=== PATIENT | female | born 1970 ===

== ENCOUNTER 2020-01-17 23:20 | Observation (INO) | payer SELFPAY ==
--- NOTE | 2020-01-17 23:24 | ED_ITS ---
Entered by Sonal Duenas, acting as scribe for Radha Scott HPI - General Adult General: Chief complaint: Allergic Reaction Stated complaint: throat swelling/possible alergic reaction Time Seen by Provider: 01/17/20 23:23 Source: patient and family Mode of arrival: ambulatory History of Present Illness: HPI narrative: 50 y/o female presents to the ED with possible allergic reaction. Pt states she has some throat swelling and tightness. She denies any previous episodes like this. Pt states she was recently started on Bactrim for sinus and ear infections. MD complaint: Allergic Reaction Onset (ago): hour(s) Location: mouth Severity: mild Pain Consistency: constant Relieving factors: none Exacerbating factors: medication Associated symptoms: Deny chest pain, confusion, diaphoresis, dyspnea, headache(s), malaise, nausea, rash, palpitations, syncope or vomiting Review of Systems General: Reports: other (negative unless marked) Const: Denies: fever, chills, body aches, fatigue, malaise or diaphoresis Eyes: Denies: change in vision or blurry vision Card: Denies: chest pain, palpitations, irregular heart rhythm, syncope, pre- syncope, shortness of breath on exertion or shortness of breath when lying down Resp: Denies: shortness of breath, productive cough, non-productive cough, wheezing, coughing up blood or chest congestion GI: Denies: abdominal pain, nausea, vomiting, vomiting blood, coffee grounds in vomit, diarrhea, constipation, cramping, blood in stool or black tarry stool : Denies: flank pain, painful urination, urinary frequency, urinary urgency, decreased urine ouput, urinary incontinence or blood in urine Musc: Denies: neck pain, back pain, extremity pain, extremity swelling, joint pain, joint swelling, joint warmth or joint stiffness Skin/Breast: Denies: rash, skin tenderness or yellow skin Neuro: Denies: headache, numbness in extremities, weakness in extremities, changes in sensation, lack of coordination, difficulty walking, dizziness, vertigo or confusion Endo: Denies: excessive thirst, tired all the time, cold intolerance, excessive sweating, flushing or hot flashes [place]/Lymph: Denies: easy bruising, easy bleeding, petechiae or enlarged lymph nodes All/Imm: Denies: hives, throat swelling, tongue swelling, facial swelling or acute wheezing PFSH ED PFSH: Social History Smoking and tobacco status: never smoked Physical Exam Const: COMMON NORMALS: no apparent distress, oriented x3, no limitations, healthy appearing and well nourished EXAM LIMITATIONS: no altered mental status GENERAL APPEARANCE: cooperative, well kempt and well developed ORIENTATION/CONSCIOUSNESS: Yes awake HENMT: COMMON NORMALS: normocephalic, head/scalp atraumatic, hearing grossly normal bilaterally, external ears normal, EAC's normal, external nose normal and moist oral mucous membranes HEAD & SCALP: normal to inspection, normocephalic and atraumatic FACE & SINUS: normal facial exam and face symmetric NOSE: external nose normal and nares normal EXTERNAL EAR: Yes external ears normal EXTERNAL AUDITORY CANAL: EAC's normal Eye: COMMON NORMALS: PERRL, EOMs intact bilaterally, conjunctivae normal and no scleral icterus GENERAL EYE: normal appearance of both eyes and normal light reflex CONJUNCTIVA: Yes conjunctivae normal SCLERA: sclerae normal CORNEA: Yes corneas normal PUPIL: Yes PERRL DIRECT OPHTHALMOSCOPY: Yes normal light reflex Neck/C-Spine: COMMON NORMALS: full ROM, no lymphadenopathy, supple, no meningeal signs and no JVD GENERAL: Yes normal visual inspection and Yes trachea midline CERVICAL SPINE: Yes cervical ROM normal Chest: COMMONS NORMALS: inspection of chest normal and palpation of chest normal Resp: COMMON NORMALS: normal respiratory effort, no retractions, no use of accessory muscles and clear to auscultation bilaterally EFFORT & INSPECTION: Yes able to speak in complete sentences AUSCULTATION: clear to auscultation bilaterally Cardio: COMMON NORMALS: no JVD, S1 normal heart sound, S2 normal heart sound, no gallops, no clicks, no murmurs and no rub JUGULAR VENOUS DISTENTION: no JVD HEART SOUNDS: S1 normal and S2 normal GI: COMMON NORMALS: soft to palpation, non-tender, no hepatosplenomegaly and no masses INSPECTION: Yes normal to inspection PALPATION: Yes soft and Yes no hepatosplenomegaly : COMMON NORMALS: Yes no CVA tenderness BLADDER/KIDNEY EXAM: Yes no CVA tenderness Back/Pelvis: COMMON NORMALS: no CVA tenderness, thoracic and lumbar spine normal to inspection, no thoracic nor lumbar tenderness and thoraco-lumbar ROM normal Extremity: COMMON NORMALS: normal to inspection, full ROM, normal capillary refill, no joint enlargement, no clubbing, cyanosis or edema and no calf tenderness Neuro: COMMON NORMALS: oriented x3, CN's II-XII intact bilaterally, moves all extremities, no focal motor deficits and no sensory deficits noted MENINGEAL SIGNS: Yes no meningeal signs Psych: COMMON NORMALS: mental status grossly normal, thought process normal, cooperative, affect normal, speech normal and activity/motor behavior normal APPEARANCE: Yes well kempt SPEECH: Yes normal speech THOUGHT PROCESS: normal thought process Skin: COMMON NORMALS: no rashes or lesions noted, skin turgor normal, no jaundice, no petechiae and no mottling GENERAL SKIN EXAM: no rashes or les ions noted and turgor normal Course ED course: 2339 - Manual pressure 282/177 2345 - Seizure followed by vomiting Vital Signs: Vital signs: Vital Signs Pulse Rate 96 01/18/20 03:00 Respiratory Rate 18 01/18/20 03:00 Blood Pressure 125/94 01/18/20 02:53 Pulse Oximetry 94 01/18/20 02:53 MDM - General Adult MDM Narrative: Medical decision making narrative: Upon arrival the patient complained of sore throat and throat swelling but had no signs of distress or severe discomfort. Her initial blood pressure was checked and found to be 274/155. The patient said at home she had been short of breath and had heart pounding but denied any symptoms here other than her throat discomfort. Elected to proceed with more than just an allergic reaction evaluation the patient was moved to a resuscitation room and given 20 mg of labetalol. The patient continued to be hypertensive and began to become nauseated and had a short syncopal spell with a loss of consciousness lasting only a few seconds. There was myoclonic jerking present but she was not incontinent of bowel or bladder and did not bite her tongue. She immediately aroused and there was no postictal period. After this though the patient vomited several times and was confused and disoriented. The patient was placed on a Cardene drip at 10 mg because she continued to be hypertensive with a blood pressure into the 230-250 range[address] Her CTs of her head, aortic CT and CT of neck all come back unremarkable except for the CT of her throat showing a questionable cyst. I did discuss this with the radiologist from [facility] and he states this is not an abscess as he listed in the differential diagnosis but is is a retention cyst. He says there is no surrounding inflammation and does not abut or press on the carotid in any way. The patient is much better to the point where her blood pressure is down now below 150 so I have turned off her Cardene. Her cardiac enzymes are not upgoing and she feels better but she still has mild throat discomfort. Is uncertain if this is some type of medication reaction or severe hypertensive emergency. The patient related that she had one other episode similar to this when she was in her 20s and she was ultimately placed on oral blood pressure medication but she took herself off of this. The patient is stable at this time. I reviewed the case in full with Dr. Carlisle and she is agreeable to admit to the ICU. She would like her put on some nitroglycerin drip which we have started at 5 mcg. The patient is better but at this time my working diagnosis is severe hypertensive episode but we will continue to monitor and evaluate from here. Patient's EKGs were unremarkable. Lab Data: Labs: Lab Results 01/17/20 01/17/20 01/17/20 Range/Units 23:27 23:37 23:37 WBC 18.8 H (4.0-10.0) 10^3/ uL RBC 4.82 (4.1-5.3) 10^6/u L Hgb 14.0 (11.5-15.3) g/dL Hct 43.5 (37.0-47.0) % MCV 90.2 (81-99) fL MCH 29.0 (28.0-34.0) pg MCHC 32.2 (30.0-36.0) g/dL RDW 14.6 (12.1-15.1) % Plt Count 241 (130-400) 10^3/c mm MPV 9.9 (7.4-10.4) fL Neut % (Auto) 79.0 % Lymph % (Auto) 13.2 % [place] % (Auto) 6.2 % Eos % (Auto) 0.5 % Baso % (Auto) 0.5 % Neut # (Auto) 14.8 H (1.8-7.7) 10^3/u L Lymph # (Auto) 2.5 (0.8-4.8) 10^3/u L [place] # (Auto) 1.2 H (0.2-0.9) 10^3/u L Eos # (Auto) 0.1 (0.0-0.8) 10^3/u L Baso # (Auto) 0.1 (0.0-0.1) 10^3/u L Nucleated RBC % (a uto) 0 % Nucleated RBCs # 0.0 /100WBC Sodium 131 L (136-145) mmol/L Potassium 3.3 L (3.5-5.1) mmol/L Chloride 94 L (98-107) mmol/L Carbon Dioxide 21 L (22-29) mmol/L Anion Gap 19.3 H (5-19) BUN 13 (6-20) mg/dL Creatinine 1.0 H (0.5-0.9) mg/dL GFR Calculation 59.2 L (90-130) mL/min Glucose 161 H (65-115) mg/dL Calcium 9.9 (8.5-10.5) mg/dL Magnesium 2.3 (1.7-2.3) mg/dL Total Bilirubin 0.3 (0.15-1.2) mg/dL AST 19 (0-32) U/L ALT 19 (0-33) U/L Alkaline Phosphata se 114 H (35-105) IU/L Troponin T Baselin e (0-10) ng/mL Troponin T 120 Min [place] (0-10) ng/mL Delta Troponin T (0-10) ABS# Total Protein 7.9 (6.6-8.7) g/dL Albumin 4.3 (3.5-5.2) g/dL Globulin 3.6 (1.3-4.6) g/dL HCG, Qual (Negative) Urine Color (Yellow) Urine Appearance (CLEAR) Urine pH (5-7) Ur Specific Gravit y (1.005-1.030) Urine Protein (Negative) Urine Glucose (UA) (Normal) Urine Ketones (Negative) Urine Blood (Negative) Urine Nitrate (Negative) Urine Bilirubin (NEGATIVE) Urine Urobilinogen (Negative) mg/dL Ur Leukocyte Katerine ase (Negative) Urine RBC (0-2) /hpf Urine WBC (0-5) /hpf Ur Squamous Epith Cells (0-5) Urine Bacteria (NONE) Group A Strep Rapi d (Negative) 01/17/20 01/17/20 01/18/20 Range/Units 23:37 23:37 00:04 WBC (4.0-10.0) 10^3/ uL RBC (4.1-5.3) 10^6/u L Hgb (11.5-15.3) g/dL Hct (37.0-47.0) % MCV (81-99) fL MCH (28.0-34.0) pg MCHC (30.0-36.0) g/dL RDW (12.1-15.1) % Plt Count (130-400) 10^3/c mm MPV (7.4-10.4) fL Neut % (Auto) % Lymph % (Auto) % [place] % (Auto) % Eos % (Auto) % Baso % (Auto) % Neut # (Auto) (1.8-7.7) 10^3/u L Lymph # (Auto) (0.8-4.8) 10^3/u L [place] # (Auto) (0.2-0.9) 10^3/u L Eos # (Auto) (0.0-0.8) 10^3/u L Baso # (Auto) (0.0-0.1) 10^3/u L Nucleated RBC % (a uto) % Nucleated RBCs # /100WBC Sodium (136-145) mmol/L Potassium (3.5-5.1) mmol/L Chloride (98-107) mmol/L Carbon Dioxide (22-29) mmol/L Anion Gap (5-19) BUN (6-20) mg/dL Creatinine (0.5-0.9) mg/dL GFR Calculation (90-130) mL/min Glucose (65-115) mg/dL Calcium (8.5-10.5) mg/dL Magnesium (1.7-2.3) mg/dL Total Bilirubin (0.15-1.2) mg/dL AST (0-32) U/L ALT (0-33) U/L Alkaline Phosphata se (35-105) IU/L Troponin T Baselin e 22 H (0-10) ng/mL Troponin T 120 Min [place] (0-10) ng/mL Delta Troponin T (0-10) ABS# Total Protein (6.6-8.7) g/dL Albumin (3.5-5.2) g/dL Globulin (1.3-4.6) g/dL HCG, Qual Negative (Negative) Urine Color Yellow (Yellow) Urine Appearance Cloudy (CLEAR) Urine pH 6 (5-7) Ur Specific Gravit y 1.020 (1.005-1.030) Urine Protein Neg (Negative) Urine Glucose (UA) 1+ (Normal) Urine Ketones Negative (Negative) Urine Blood 2+ H (Negative) Urine Nitrate Negative (Negative) Urine Bilirubin Neg (NEGATIVE) Urine Urobilinogen Norm (Negative) mg/dL Ur Leukocyte Katerine ase 1+ H (Negative) Urine RBC 5-10 H (0-2) /hpf Urine WBC 25-40 H (0-5) /hpf Ur Squamous Epith Cells 15-25 H (0-5) Urine Bacteria 1+ H (NONE) Group A Strep Rapi d (Negative) 01/18/20 01/18/20 Range/Units 00:23 01:30 WBC (4.0-10.0) 10^3/ uL RBC (4.1-5.3) 10^6/u L Hgb (11.5-15.3) g/dL Hct (37.0-47.0) % MCV (81-99) fL MCH (28.0-34.0) pg MCHC (30.0-36.0) g/dL RDW (12.1-15.1) % Plt Count (130-400) 10^3/c mm MPV (7.4-10.4) fL Neut % (Auto) % Lymph % (Auto) % [place] % (Auto) % Eos % (Auto) % Baso % (Auto) % Neut # (Auto) (1.8-7.7) 10^3/u L Lymph # (Auto) (0.8-4.8) 10^3/u L [place] # (Auto) (0.2-0.9) 10^3/u L Eos # (Auto) (0.0-0.8) 10^3/u L Baso # (Auto) (0.0-0.1) 10^3/u L Nucleated RBC % (a uto) % Nucleated RBCs # /100WBC Sodium (136-145) mmol/L Potassium (3.5-5.1) mmol/L Chloride (98-107) mmol/L Carbon Dioxide (22-29) mmol/L Anion Gap (5-19) BUN (6-20) mg/dL Creatinine (0.5-0.9) mg/dL GFR Calculation (90-130) mL/min Glucose (65-115) mg/dL Calcium (8.5-10.5) mg/dL Magnesium (1.7-2.3) mg/dL Total Bilirubin (0.15-1.2) mg/dL AST (0-32) U/L ALT (0-33) U/L Alkaline Phosphata se (35-105) IU/L Troponin T Baselin e (0-10) ng/mL Troponin T 120 Min [place] 23.01 H (0-10) ng/mL Delta Troponin T 1.01 (0-10) ABS# Total Protein (6.6-8.7) g/dL Albumin (3.5-5.2) g/dL Globulin (1.3-4.6) g/dL HCG, Qual (Negative) Urine Color (Yellow) Urine Appearance (CLEAR) Urine pH (5-7) Ur Specific Gravit y (1.005-1.030) Urine Protein (Negative) Urine Glucose (UA) (Normal) Urine Ketones (Negative) Urine Blood (Negative) Urine Nitrate (Negative) Urine Bilirubin (NEGATIVE) Urine Urobilinogen (Negative) mg/dL Ur Leukocyte Katerine ase (Negative) Urine RBC (0-2) /hpf Urine WBC (0-5) /hpf Ur Squamous Epith Cells (0-5) Urine Bacteria (NONE) Group A Strep Rapi d Negative (Negative) Imaging Data^: CT Head: Radiologist's impression: [address] [place] [address] CT Scan Report Signed Patient: Lilian Cisneros Unit #: [id number] : 1970 Age/Sex: 50 / F ADM Date: 01/17/20 Loc: ER Room/Bed: Attending Dr: Ordering Provider/Ordering MD: Radha Scott DO Date of Service: 01/17/20 Procedure(s): CT head wo con* [id number] Accession Number(s): [id number] Report Number: [id number] PROCEDURE INFORMATION: Exam: CT Head Without Contrast Exam date and time: 01/17/2020 11:50 PM Age: 50 years old Clinical indication: Altered mental status/memory loss and other: Elevated BP; Additional info: AMS TECHNIQUE: Imaging protocol: Computed tomography of the head without contrast. Total DLP: 823.46 mGy-cm Radiation optimization: All CT scans at this facility use at least one of these dose optimization techniques: automated exposure control; mA and/or kV adjustment per patient size (includes targeted exams where dose is matched to clinical indication); or iterative reconstruction. COMPARISON: No relevant prior studies available. FINDINGS: Brain: Small chronic deep right frontal white matter lacunar infarct. No midline shift, mass, fluid collection, or evidence of acute hemorrhage. Ventricles: Normal. No ventriculomegaly. Bones/joints: Unremarkable. No acute fracture. Sinuses: Visualized sinuses are unremarkable. No fluid levels. Mastoid air cells: Visualized mastoid air cells are well aerated. Soft tissues: Unremarkable. CT/CT head wo con* [id number] IMPRESSION: No acute intracranial abnormality. Radiation Dose CTDIVOL = (mGy): DLP = 823.46 (mGy-cm) Dictated By: Scott Dyson MD Signed By: Scott Dyson MD Signed Date/Time: 01/18/2058 DD/ CT Chest: Radiologist's impression: [address] [address] [address] Scan Report Signed Patient: Lilian Cisneros Unit #: [id number] : 1970 Age/Sex: 50 / F ADM Date: 01/17/20 Loc: ER Room/Bed: Attending Dr: Ordering Provider/Ordering MD: Radha Scott DO Date of Service: 01/18/20 Procedure(s): CT angio chest abdomen pelvis Accession Number(s): [id number] Report Number: [id number] PROCEDURE INFORMATION: Exam: CT Angiography Chest With Contrast Exam date and time: 01/18/2020 12:02 AM Age: 50 years old Clinical indication: Other: Elevated BP, evaluate for dissection; Other: Elevated bpm evaluate for dissection TECHNIQUE: Imaging protocol: Computed tomographic angiography of the chest with intravenous contrast. 3D rendering: MIP and/or 3D reconstructed images were created by the technologist. Total DLP: 1958.68 mGy-cm Radiation optimization: All CT scans at this facility use at least one of these dose optimization techniques: automated exposure control; mA and/or kV adjustment per patient size (includes targeted exams where dose is matched to clinical indication); or iterative reconstruction. Contrast material: OMNI 350; Contrast volume: 95 ml; Contrast route: 20G; COMPARISON: No relevant prior studies available. FINDINGS: Limitations: Limited by patient's body habitus. Pulmonary arteries: Normal. No pulmonary emboli. Aorta: Unremarkable. No aortic aneurysm. No aortic dissection. Lungs: Dependent subsegmental pulmonary atelectasis. Pleural space: Unremarkable. No pneumothorax. No pleural effusion. Heart: Unremarkable. No cardiomegaly. No pericardial effusion. Mediastinum: Mild distal esophageal thickening. Lymph nodes: Unremarkable. No enlarged lymph nodes. Bones/joints: Mild to moderate thoracic spondylosis with exaggeration of the thoracic kyphosis and associated degenerative endplate spurring and disc space loss. Soft tissues: Unremarkable. IMPRESSION: No acute findings. PROCEDURE INFORMATION: Exam: CT Angiography Abdomen and Pelvis With Contrast Exam date and time: 01/18/2020 12:02 AM Age: 50 years old Clinical indication: Other: Elevated BP, evaluate for dissection; Other: Elevated bpm evaluate for dissection TECHNIQUE: Imaging protocol: Computed tomographic angiography of the abdomen and pelvis with intravenous contrast material. 3D rendering: MIP and/or 3D reconstructed images were created by the technologist. Total DLP: 1950.69 mGy-cm Radiation optimization: All CT scans at this facility use at least one of these dose optimization techniques: automated exposure control; mA and/or kV adjustment per patient size (includes targeted exams where dose is matched to clinical indication); or iterative reconstruction. Contrast material: OMNI 350; Contrast volume: 95 ml; Contrast route: 20G; COMPARISON: No relevant prior studies available. FINDINGS: Aorta: No aortic aneurysm. No aortic dissection. Celiac trunk and mesenteric arteries: No occlusion or significant stenosis. Renal arteries: No occlusion or significant stenosis. Right iliac arteries: No occlusion or significant stenosis. Left iliac arteries: No occlusion or significant stenosis. Liver: Enlarged low attenuating liver, evidence of hepatic steatosis. Gallbladder and bile ducts: Unremarkable. No calcified stones. No ductal dilation. Pancreas: Unremarkable. No mass. No ductal dilation. Spleen: Unremarkable. No splenomegaly. Adrenals: Unremarkable. No mass. Kidneys and ureters: Unremarkable. No solid mass. No hydronephrosis. Stomach and bowel: Mild colonic diverticulosis without evidence for acute diverticulitis. Appendix: No evidence of appendicitis. Intraperitoneal space: Unremarkable. No free air. No significant fluid collection. Lymph nodes: Unremarkable. No enlarged lymph nodes. Bladder: Unremarkable. No mass. Reproductive: Small cystic areas and endometrial thickening in the uterus. Recommend follow-up. Bones/joints: No acute fracture. No dislocation. Soft tissues: Unremarkable. CT/CT angio chest abdomen pelvis IMPRESSION: Small cystic areas and endometrial thickening in the uterus. Recommend follow-up. Radiation Dose CTDIVOL = (mGy): DLP = 1950.69 1958.68 (mGy-cm) Dictated By: Scott Dyson MD Signed By: Scott Dyson MD Signed Date/Time: 01/18/20 011 DD/ 8 Other Imaging: Radiologist's impression: [address] [address] [address] Scan Report Signed with Addenda Patient: Lilian Cisneros Unit #: [id number] : 1970 Age/Sex: 50 / F ADM Date: 01/17/20 Loc: ER Room/Bed: Attending Dr: Ordering Provider/Ordering MD: Radha Scott DO Date of Service: 01/18/20 Procedure(s): CT neck w con* [id number] Accession Number(s): [id number] Report Number: [id number]/CT neck w con* [id number] THIS REPORT CONTAINS FINDINGS THAT MAY BE CRITICAL TO PATIENT CARE. The study was personally discussed on the telephone with care provider Dr. Marie on 01/18/2020 1:30 AM HELICOPTER ENGINEER. The results were understood and acknowledged. Radiation Dose CTDIVOL = (mGy): DLP = 751.69 (mGy-cm) Addendum Dictated By: Scott Dyson MD Addendum Signed By: Scott Dyson MD Signed Date/Time: 01/18/2012 20 Addendum Cosigned By: PROCEDURE INFORMATION: Exam: CT Neck With Contrast Exam date and time: 01/18/2020 12:05 AM Age: 50 years old Clinical indication: Mass, lump, or swelling in neck; Additional info: Pain/swelling TECHNIQUE: Imaging protocol: Computed tomography images of the neck with intravenous contrast. Total DLP: 751.69 mGy-cm Radiation optimization: All CT scans at this facility use at least one of these dose optimization techniques: automated exposure control; mA and/or kV adjustment per patient size (includes targeted exams where dose is matched to clinical indication); or iterative reconstruction. Contrast material: OMNI 350; Contrast volume: 95 ml; Contrast route: 20G; COMPARISON: No relevant prior studies available. FINDINGS: Limitations: Dental amalgam artifact obscures the oral cavity and oral pharynx. Nasopharynx: Unremarkable. Oropharynx: Left tonsillar 1.4 cm cystic lesion, question abscess or retention cyst. Left palatine tonsillar enlargement. Hypopharynx: Unremarkable. Larynx: Unremarkable. Normal epiglottis. Retropharyngeal space: Unremarkable. Submandibular/Parotid glands: Normal. Glands are normal in size. Thyroid: Normal. No enlarged or calcified nodules. Lymph nodes: Non-specific mild cervical adenopathy, reactive or neoplastic . Multipleleft upper cervical a rounded lymph nodes, measuring up to 1.8 cm. Trachea: Visualized trachea is unremarkable. Lungs: Unremarkable as visualized. Bones/joints: Straightened cervical curvature. Soft tissues: Unremarkable. No significant soft tissue swelling. CT/CT neck w con* [id number] IMPRESSION: 1. Left tonsillar 1.4 cm cystic lesion, question abscess or retention cyst. 2. Non-specific mild cervical adenopathy, reactive or neoplastic . Radiation Dose CTDIVOL = (mGy): DLP = 751.69 (mGy-cm) Dictated By: Scott Dyson MD Signed By: Scott Dyson MD Signed Date/Time: 01/18/20115 DD/ 4 EKG Data^: EKG 1: Attestation: I personally reviewed and interpreted this EKG as follows: EKG interpretation date: 01/18/20 EKG interpretation time: 00:03 Interpretation: Normal sinus rhythm at 100 beats a minute, nonspecific ST and T wave changes. Computer generated interpretation: Chest X-Ray 01/17/20 23:29 IMPRESSION: No acute findings. Head CT 01/17/20 23:46 IMPRESSION: No acute intracranial abnormality. Radiation Dose CTDIVOL = (mGy): DLP = 823.46 (mGy-cm) Chest/Abdomen/Pelvis CTA 01/18/20 00:01 IMPRESSION: Small cystic areas and endometrial thickening in the uterus. Recommend follow-up. Radiation Dose CTDIVOL = (mGy): DLP = 1950.69~1958.68 (mGy-cm) Neck CT 01/18/20 00:04 IMPRESSION: 1. Left tonsillar 1.4 cm cystic lesion, question abscess or retention cyst. 2. Non-specific mild cervical adenopathy, reactive or neoplastic . Radiation Dose CTDIVOL = (mGy): DLP = 751.69 (mGy-cm) ADDENDUM: 01/18/20 0131 THIS REPORT CONTAINS FINDINGS THAT MAY BE CRITICAL TO PATIENT CARE. The study was personally discussed on the telephone with care provider Dr. Marie on 01/18/2020 1:30 AM HELICOPTER ENGINEER. The results were understood and acknowledged. Radiation Dose CTDIVOL = (mGy): DLP = 751.69 (mGy-cm) EKG 2: Attestation: I personally reviewed and interpreted this EKG as follows: EKG interpretation date: 01/18/20 EKG interpretation time: 01:17 Interpretation: Normal sinus rhythm at 91 beats a minute, ST segment depressions 2, aVF, 1, V6. Computer generated interpretation: Chest X-Ray 01/17/20 23:29 IMPRESSION: No acute findings. Head CT 01/17/20 23:46 IMPRESSION: No acute intracranial abnormality. Radiation Dose CTDIVOL = (mGy): DLP = 823.46 (mGy-cm) Chest/Abdomen/Pelvis CTA 01/18/20 00:01 IMPRESSION: Small cystic areas and endometrial thickening in the uterus. Recommend follow-up. Radiation Dose CTDIVOL = (mGy): DLP = 1950.69~1958.68 (mGy-cm) Neck CT 01/18/20 00:04 IMPRESSION: 1. Left tonsillar 1.4 cm cystic lesion, question abscess or retention cyst. 2. Non-specific mild cervical adenopathy, reactive or neoplastic . Radiation Dose CTDIVOL = (mGy): DLP = 751.69 (mGy-cm) ADDENDUM: 01/18/20 0131 THIS REPORT CONTAINS FINDINGS THAT MAY BE CRITICAL TO PATIENT CARE. The study was personally discussed on the telephone with care provider Dr. Marie on 01/18/2020 1:30 AM HELICOPTER ENGINEER. The results were understood and acknowledged. Radiation Dose CTDIVOL = (mGy): DLP = 751.69 (mGy-cm) Discharge Plan Discharge Admit Provider: Malka Mendoza Discharge Date/Time: 01/18/20 02:55 Coding Level of Care Code ED Entry Operator for Chg Fwd Exam Comprehensive The documentation recorded by the Henrique mckinnon Ashley, accurately reflects the service I personally performed and the decisions made by Sonia frost Eli N Jan 17, 2020 23:20
--- NOTE | 2020-01-17 23:25 | PC.NURSE ---
Patient states she just started a new medication today and feels like she is having a allergic reaction. Patient states that her throat is swelling. Patient states that she was placed on the antibiotics because her throat has been hurting and she was told she had a sinus infection.
--- NOTE | 2020-01-17 23:29 | XRR_ITS ---
PROCEDURE INFORMATION: Exam: XR Chest, 1 View Exam date and time: 01/18/2020 12:06 AM Age: 50 years old Clinical indication: Cough and other: Elevated BP TECHNIQUE: Imaging protocol: XR of the chest Views: 1 view. COMPARISON: No relevant prior studies available. FINDINGS: Lungs: There is a pulmonary parenchymal calcification consistent with remote granulomatous organism exposure. Minimal linear mid left lung scarring or atelectasis. Pleural space: Unremarkable. No pleural effusion. No pneumothorax. Heart/Mediastinum: Unremarkable. No cardiomegaly. Bones/joints: Unremarkable. XR/XR chest 1V portable [id number] IMPRESSION: No acute findings.
[2020-01-17 23:30] VITALS: BP 274/155; PULSE 117; RESP 18; O2SAT 96; BMI 37.8
--- NOTE | 2020-01-17 23:30 | ECG_ITS ---
Measurements Intervals [place] Rate: 110 P: 74 WV: 165 QRS: -22 QRSD: 97 T: 59 QT: 401 QTc: 544 SINUS TACHYCARDIA BORDERLINE LEFT AXIS DEVIATION [QRS AXIS < -20] MINIMAL ST DEPRESSION [0.025+ mV ST DEPRESSION] ABNORMAL RHYTHM ECG No previous ECG available for comparison Electronically Signed On 01-18-2020 20:23:35 ROBOT OPERATOR by Tito Rasheed M.D. [id number]
[2020-01-17 23:40] VITALS: BP 284/170
--- NOTE | 2020-01-17 23:46 | CTR_ITS ---
PROCEDURE INFORMATION: Exam: CT Head Without Contrast Exam date and time: 01/17/2020 11:50 PM Age: 50 years old Clinical indication: Altered mental status/memory loss and other: Elevated BP; Additional info: AMS TECHNIQUE: Imaging protocol: Computed tomography of the head without contrast. Total DLP: 823.46 mGy-cm Radiation optimization: All CT scans at this facility use at least one of these dose optimization techniques: automated exposure control; mA and/or kV adjustment per patient size (includes targeted exams where dose is matched to clinical indication); or iterative reconstruction. COMPARISON: No relevant prior studies available. FINDINGS: Brain: Small chronic deep right frontal white matter lacunar infarct. No midline shift, mass, fluid collection, or evidence of acute hemorrhage. Ventricles: Normal. No ventriculomegaly. Bones/joints: Unremarkable. No acute fracture. Sinuses: Visualized sinuses are unremarkable. No fluid levels. Mastoid air cells: Visualized mastoid air cells are well aerated. Soft tissues: Unremarkable. CT/CT head wo con* [id number] IMPRESSION: No acute intracranial abnormality. Radiation Dose CTDIVOL = (mGy): DLP = 823.46 (mGy-cm)
[2020-01-17 23:52] LABS: Basophils # 0.1 10^3/uL (0.0-0.1); Basophils % 0.5 %; Eosinophils # 0.1 10^3/uL (0.0-0.8); Eosinophils % 0.5 %; Hematocrit 43.5 % (37.0-47.0); Lymphocytes # 2.5 10^3/uL (0.8-4.8); Lymphocytes % 13.2 %; Mean Corpuscular HGB Conc 32.2 g/dL (30.0-36.0); Mean Corpuscular Volume 90.2 fL (81-99); Mean Platelet Volume 9.9 fL (7.4-10.4); Monocytes # 1.2 10^3/uL (0.2-0.9); Monocytes % 6.2 %; Neutrophils # 14.8 10^3/uL (1.8-7.7); Nucleated Red Blood Cells % 0 %; Platelet Count 241 10^3/cmm (130-400); Red Blood Count 4.82 10^6/uL (4.1-5.3); Red Cell Distribution Width 14.6 % (12.1-15.1); White Blood Count 18.8 10^3/uL (4.0-10.0)
[2020-01-18] VITALS (123 sets, daily range): BP systolic 114–232; BP diastolic 73–160; PULSE 76–104; RESP 12–32; TEMP 36.6–37.1; O2SAT 89–98; BMI 37.8
--- NOTE | 2020-01-18 00:01 | CTR_ITS ---
PROCEDURE INFORMATION: Exam: CT Angiography Chest With Contrast Exam date and time: 01/18/2020 12:02 AM Age: 50 years old Clinical indication: Other: Elevated BP, evaluate for dissection; Other: Elevated bpm evaluate for dissection TECHNIQUE: Imaging protocol: Computed tomographic angiography of the chest with intravenous contrast. 3D rendering: MIP and/or 3D reconstructed images were created by the technologist. Total DLP: 1958.68 mGy-cm Radiation optimization: All CT scans at this facility use at least one of these dose optimization techniques: automated exposure control; mA and/or kV adjustment per patient size (includes targeted exams where dose is matched to clinical indication); or iterative reconstruction. Contrast material: OMNI 350; Contrast volume: 95 ml; Contrast route: 20G; COMPARISON: No relevant prior studies available. FINDINGS: Limitations: Limited by patient's body habitus. Pulmonary arteries: Normal. No pulmonary emboli. Aorta: Unremarkable. No aortic aneurysm. No aortic dissection. Lungs: Dependent subsegmental pulmonary atelectasis. Pleural space: Unremarkable. No pneumothorax. No pleural effusion. Heart: Unremarkable. No cardiomegaly. No pericardial effusion. Mediastinum: Mild distal esophageal thickening. Lymph nodes: Unremarkable. No enlarged lymph nodes. Bones/joints: Mild to moderate thoracic spondylosis with exaggeration of the thoracic kyphosis and associated degenerative endplate spurring and disc space loss. Soft tissues: Unremarkable. IMPRESSION: No acute findings. PROCEDURE INFORMATION: Exam: CT Angiography Abdomen and Pelvis With Contrast Exam date and time: 01/18/2020 12:02 AM Age: 50 years old Clinical indication: Other: Elevated BP, evaluate for dissection; Other: Elevated bpm evaluate for dissection TECHNIQUE: Imaging protocol: Computed tomographic angiography of the abdomen and pelvis with intravenous contrast material. 3D rendering: MIP and/or 3D reconstructed images were created by the technologist. Total DLP: 1950.69 mGy-cm Radiation optimization: All CT scans at this facility use at least one of these dose optimization techniques: automated exposure control; mA and/or kV adjustment per patient size (includes targeted exams where dose is matched to clinical indication); or iterative reconstruction. Contrast material: OMNI 350; Contrast volume: 95 ml; Contrast route: 20G; COMPARISON: No relevant prior studies available. FINDINGS: Aorta: No aortic aneurysm. No aortic dissection. Celiac trunk and mesenteric arteries: No occlusion or significant stenosis. Renal arteries: No occlusion or significant stenosis. Right iliac arteries: No occlusion or significant stenosis. Left iliac arteries: No occlusion or significant stenosis. Liver: Enlarged low attenuating liver, evidence of hepatic steatosis. Gallbladder and bile ducts: Unremarkable. No calcified stones. No ductal dilation. Pancreas: Unremarkable. No mass. No ductal dilation. Spleen: Unremarkable. No splenomegaly. Adrenals: Unremarkable. No mass. Kidneys and ureters: Unremarkable. No solid mass. No hydronephrosis. Stomach and bowel: Mild colonic diverticulosis without evidence for acute diverticulitis. Appendix: No evidence of appendicitis. Intraperitoneal space: Unremarkable. No free air. No significant fluid collection. Lymph nodes: Unremarkable. No enlarged lymph nodes. Bladder: Unremarkable. No mass. Reproductive: Small cystic areas and endometrial thickening in the uterus. Recommend follow-up. Bones/joints: No acute fracture. No dislocation. Soft tissues: Unremarkable. CT/CT angio chest abdomen pelvis IMPRESSION: Small cystic areas and endometrial thickening in the uterus. Recommend follow-up. Radiation Dose CTDIVOL = (mGy): DLP = 1950.69~1958.68 (mGy-cm)
[2020-01-18] MEDS: diphenhydrAMINE 50 mg/mL SDV 1mL 25 MG IVP (00:02)
[2020-01-18] MEDS: famotidine 20 mg/2 mL INJ 40 MG IVP (00:02)
[2020-01-18] MEDS: ondansetron 2 mg/ML SDV 2 mL 8 MG IVP (00:02)
--- NOTE | 2020-01-18 00:04 | CTR_ITS ---
PROCEDURE INFORMATION: Exam: CT Neck With Contrast Exam date and time: 01/18/2020 12:05 AM Age: 50 years old Clinical indication: Mass, lump, or swelling in neck; Additional info: Pain/swelling TECHNIQUE: Imaging protocol: Computed tomography images of the neck with intravenous contrast. Total DLP: 751.69 mGy-cm Radiation optimization: All CT scans at this facility use at least one of these dose optimization techniques: automated exposure control; mA and/or kV adjustment per patient size (includes targeted exams where dose is matched to clinical indication); or iterative reconstruction. Contrast material: OMNI 350; Contrast volume: 95 ml; Contrast route: 20G; COMPARISON: No relevant prior studies available. FINDINGS: Limitations: Dental amalgam artifact obscures the oral cavity and oral pharynx. Nasopharynx: Unremarkable. Oropharynx: Left tonsillar 1.4 cm cystic lesion, question abscess or retention cyst. Left palatine tonsillar enlargement. Hypopharynx: Unremarkable. Larynx: Unremarkable. Normal epiglottis. Retropharyngeal space: Unremarkable. Submandibular/Parotid glands: Normal. Glands are normal in size. Thyroid: Normal. No enlarged or calcified nodules. Lymph nodes: Non-specific mild cervical adenopathy, reactive or neoplastic . Multipleleft upper cervical a rounded lymph nodes, measuring up to 1.8 cm. Trachea: Visualized trachea is unremarkable. Lungs: Unremarkable as visualized. Bones/joints: Straightened cervical curvature. Soft tissues: Unremarkable. No significant soft tissue swelling. CT/CT neck w con* [id number] IMPRESSION: 1. Left tonsillar 1.4 cm cystic lesion, question abscess or retention cyst. 2. Non-specific mild cervical adenopathy, reactive or neoplastic . Radiation Dose CTDIVOL = (mGy): DLP = 751.69 (mGy-cm)
[2020-01-18] MEDS: LORazepam 2 mg/mL INJ 1 mL (00:06)
[2020-01-18] MEDS: labetalol 5 mg/mL SDV 20mL 10 MG IVP ×2 (00:08→00:16)
--- NOTE | 2020-01-18 00:11 | PC.NURSE ---
LEFT ARM ON PORTABLE MONITOR
[2020-01-18 00:14] LABS: Alanine Aminotransferase 19 U/L (0-33); Albumin Level 4.3 g/dL (3.5-5.2); Alkaline Phosphatase 114 IU/L (35-105); Anion Gap 19.3 (5-19); Aspartate Amino Transferase 19 U/L (0-32); Blood Urea Nitrogen 13 mg/dL (6-20); Calcium 9.9 mg/dL (8.5-10.5); Carbon Dioxide 21 mmol/L (22-29); Chloride 94 mmol/L (98-107); Globulin 3.6 g/dL (1.3-4.6); Glomerular Filtration Rate 59.2 mL/min (90-130); Glucose 161 mg/dL (65-115); Potassium 3.3 mmol/L (3.5-5.1); Sodium 131 mmol/L (136-145); Total Bilirubin 0.3 mg/dL (0.15-1.2); Total Protein 7.9 g/dL (6.6-8.7)
--- NOTE | 2020-01-18 00:23 | PC.NURSE ---
PATIENT TO CT
[2020-01-18 00:24] LABS: Urine Appearance Cloudy (CLEAR); Urine Color Yellow (Yellow); pH Urine 6 (5-7)
[2020-01-18 00:25] LABS: Bacteria Urine 1+; Bilirubin Urine Neg (NEGATIVE); Blood Urine 2+ (Negative); Glucose Urine UA 1+ (Normal); Ketones Urine Negative (Negative); Leukocyte Esterase Urine 1+ (Negative); Nitrate Urine Negative (Negative); Protein Urine Neg (Negative); Squamous Epithelial Cell Urine 15-25 (0-5); Urobilinogen Urine Norm (Negative); WBC Urine 25-40 /hpf (0-5)
--- NOTE | 2020-01-18 00:28 | PC.NURSE ---
PATIENT MOVED FROM ROOM 13 TO TRAUMA ROOM [address] PACHECO ORDERS.
[2020-01-18 00:30] LABS: Troponin(5th) Baseline 22 ng/mL (0-10)
[2020-01-18 00:32] LABS: HCG, Serum Qual Negative (Negative)
[2020-01-18 00:45] LABS: Magnesium 2.3 mg/dL (1.7-2.3)
[2020-01-18] MEDS: iohexol 350 mg/mL 100 mL Btl IV (00:50)
[2020-01-18 00:55] LABS: Rapid Strep A Test Negative (Negative)
--- NOTE | 2020-01-18 01:16 | PC.NURSE ---
EKG done at 0115 and shown to ER doctor
--- NOTE | 2020-01-18 01:30 | ECG_ITS ---
Measurements Intervals [place] Rate: 92 P: 66 DC: 148 QRS: -11 QRSD: 97 T: 40 QT: 444 QTc: [address] DEPRESSION [0.025+ mV ST DEPRESSION] PROLONGED QT INTERVAL No previous ECG available for comparison Electronically Signed On 01-18-2020 20:34:34 TOOL ANALYST by Tito Rasheed M.D. [id number]
[2020-01-18] MEDS: piperacillin-tazobactam 3.375 GM in sodium chloride 0.9% (plus) 50 ML IV (01:47)
[2020-01-18 02:08] LABS: Troponin 5 2HR 23.01 ng/mL (0-10); Troponin 5 2HR Delta 1.01 ABS# (0-10)
--- NOTE | 2020-01-18 02:23 | PC.NURSE ---
HCP IN ROOM
[2020-01-18] MEDS: sodium chloride 0.9% 1,000 ML 100 ML IV ×3 (02:32→20:30)
[2020-01-18] MEDS: nitroglycerin drip 50 MG/250 ML PREMIX IV (02:36)
--- NOTE | 2020-01-18 03:25 | P.HP_ITS ---
Providers/Chief Complaint Admitting Physician: Malka Mendoza MD Primary Care Provider: RENE Ryan Chief Complaint: throat swelling/possible alergic reaction History of Present Illness Lilian Cisneros is a 50 year old female who presented to the emergency room with a chief complaint of swelling in her throat thinking that she had had a reaction to Bactrim. After being in the emergency room for little while she became extremely hypertensive to 220s over 110s. But 2 bactrim feeling fullness in throat 45 1 hr dizzy, sob, palpitations irregular, ears hot no cp no abd pain, nomdiarrhea Review of Systems Eyes: Reports: eye discomfort and eye redness; Denies: change in vision ENMT: Reports: throat pain, ear pain, nasal congestion and post nasal drip Card: Reports: palpitations (with acute episode), irregular heart rhythm (with acute episode) and swelling of feet/ankles (sometimes); Denies: chest pain or shortness of breath when lying down Resp: Reports: shortness of breath (with acute episode) and productive cough GI: Denies: abdominal pain, nausea, vomiting, difficulty swallowing, diarrhea, cramping or change in stool character : Denies: difficulty urinating or painful urination Musc: Denies: joint pain Skin/Breast: Denies: rash, itching or redness Neuro: Reports: headache; Denies: numbness in extremities or weakness in extremities Medications/Allergies Home Medications Medication Instructions Recorded Confirmed Last Taken Type No Known Home Medications 01/17/20 01/17/20 Unknown History Allergies Allergy/AdvReac Type Severity Reaction Status Date / Time sulfamethoxazole Allergy ALGY-Anaphy Verified 01/17/20 23:36 [From Bactrim] laxis trimethoprim [From Bactrim] Allergy ALGY-Anaphy Verified 01/17/20 23:36 laxis PFSH Acute PFSH: Surgical History Status post Family History Father Hypertension Mother Hypertension Social History Smoking and tobacco status: never smoked Alcohol intake: never Substance/Drug Use: never Lives independently: Yes Household members: spouse and children Marital status: Female Reproductive History: : 3 Para: 3 Supplemental [facility] Information: no known medical diagnoses Vitals/I&O/Wt Last Vital Signs Pulse 96 01/18/20 03:00 Resp 18 01/18/20 03:00 BP 125/94 01/18/20 02:53 Pulse Ox 94 01/18/20 02:53 01/17/20 01/17/20 01/18/20 14:59 22:59 06:59 Intake Total 96.667 / 96.667 Balance 96.667 / 96.667 Weight last 48 hrs Weight 90.718 kg Physical Exam Const: COMMON NORMALS: oriented x3 and alert HENMT: COMMON NORMALS: normocephalic and head/scalp atraumatic FACE & SINUS: sinus tenderness NOSE: mucous membranes and turbinates abnormal boggy and erythematous MOUTH: oral and palatal mucosa abnormal erythematous and other (Tonsils are not deviated on the left); no trismus Eye: COMMON NORMALS: PERRL and EOMs intact bilaterally Neck/C-Spine: COMMON NORMALS: supple Resp: COMMON NORMALS: normal respiratory effort, no use of accessory muscles and clear to auscultation bilaterally Cardio: COMMON NORMALS: regular rate, regular rhythm and no murmurs GI: COMMON NORMALS: soft to palpation and non-tender AUSCULTATION: Yes normoactive bowel sounds Extremity: COMMON NORMALS: normal capillary refill, no clubbing, cyanosis or edema and no calf tenderness Neuro: COMMON NORMALS: moves all extremities and no sensory deficits noted Psych: COMMON NORMALS: cooperative THOUGHT PROCESS: normal thought process Skin: COMMON NORMALS: no rashes or lesions noted Data : 01/18/20 05:49 01/18/20 05:49 Other data: Short CBC 01/17/20 01/17/20 01/18/20 Range/Units 23:37 23:37 05:49 WBC 18.8 H 15.9 H (4.0-10.0) 10^3/uL Hgb 14.0 12.9 (11.5-15.3) g/dL Hct 43.5 38.9 (37.0-47.0) % Plt Count 241 220 (130-400) 10^3/cmm Creatinine 1.0 H (0.5-0.9) mg/dL 01/18/20 Range/Units 05:49 WBC (4.0-10.0) 10^3/uL Hgb (11.5-15.3) g/dL Hct (37.0-47.0) % Plt Count (130-400) 10^3/cmm Creatinine 1.2 H (0.5-0.9) mg/dL BMP 01/17/20 01/18/20 23:37 05:49 Sodium 131 L 136 Potassium 3.3 L 3.9 Chloride 94 L 99 Carbon Dioxide 21 L 22 BUN 13 14 Creatinine 1.0 H 1.2 H Glucose 161 H 276 H Calcium 9.9 9.4 Liver Function 01/17/20 Range/Units 23:37 Total Bilirubin 0.3 (0.15-1.2) mg/dL AST 19 (0-32) U/L ALT 19 (0-33) U/L Alkaline Phosphatase 114 H (35-105) IU/L Albumin 4.3 (3.5-5.2) g/dL Urine 01/18/20 Range/Units 00:04 Urine Color Yellow (Yellow) Urine Appearance Cloudy (CLEAR) Urine pH 6 (5-7) Ur Specific [place] 1.020 (1.005-1.030) Urine Protein Neg (Negative) Urine Glucose (UA) 1+ (Normal) A&P Assessment and plan (1) Allergic reaction caused by a drug: Presumptive diagnosis based on symptoms of fullness in the throat, palpitations, shortness of breath after taking her second dose of Bactrim Status: Acute Qualifiers: Encounter type: initial encounter Qualified Code(s): T78.40XA - Allergy, unspecified, initial encounter Code(s): T78.40XA - Allergy, unspecified, initial encounter (2) Hypertensive urgency: Blood pressures on arrival to the emergency room are quite high. Reached into the 280s over 150s. Labetalol did not significantly improve her blood pressure. Cardene improved her pressure too much but she has done well with nitroglycerin drip. Has no known diagnosis of hypertension but does not recall having her blood pressure checked since 2012.. Status: Acute Code(s): I16.0 - Hypertensive urgency (3) Hyperglycemia: Without a known diagnosis of diabetes Status: Acute Code(s): R73.9 - Hyperglycemia, unspecified (4) Tonsillar cyst: Noted on CT imaging of the neck. Mentioned in the radiologist impression was also the possibility of abscess. Exam does not go along with this presently. She does have a elevation in white count however. Status: Acute Code(s): J35.8 - Other chronic diseases of tonsils and adenoids Additional A&P Information I suspect that patient has had longstanding hypertension that is just gone undiagnosed. She presented with symptoms she attributed to taking Bactrim but it may have in fact been secondary to hypertensive emergency. She does have sinus symptoms and a CT of the neck that was done showing a left tonsillar cyst versus abscess. She had a slightly elevated white count as well. Clinically I am leaning more towards a cyst in this region. Observation admission for now Going to the ICU given nitroglycerin drip Start oral lisinopril, keeping an eye on renal dysfunction Wean nitroglycerin drip as able I suspect we will have to add additional antihypertensive agents Sliding scale insulin currently for diabetes Check hemoglobin A1c Cannot start metformin for at least 48 hours secondary to contrast administration Currently low risk for DVT Amoxicillin for sinus symptoms Flonase Monitor for worsening oral pharyngeal symptoms Rapid strep screen was negative Supportive care otherwise Full code Plans discussed with patient and she was given an opportunity to ask questions Attestations Medical Necessity Statement*: Currently anticipated stay less than 2 midnights and patient presenting with hypertensive urgency. I suspect that she has longstanding hypertension that has not been treated or diagnosed. Additionally she has hyperglycemia and some upper respiratory symptoms as described. Plans are as indicated. Coding Level of Care Code Acute Wood Flour Miller for Doretha Mcclelland Diagnoses Allergic reaction caused by a drug T78.40XA Encounter type: initial encounter Hypertensive urgency I16.0 Hyperglycemia R73.9 Tonsillar cyst J35.8
--- NOTE | 2020-01-18 05:30 | ECG_ITS ---
Measurements Intervals [place] Rate: 91 P: 16 TX: 153 QRS: -15 QRSD: 108 T: 7 QT: 444 QTc: [address] DEPRESSION [0.025+ mV ST DEPRESSION] PROLONGED QT INTERVAL No previous ECG available for comparison Electronically Signed On 01-18-2020 20:33:50 INTERNAL REVIEW AND AUDIT COMPLIANCE by Tito Rasheed M.D. [id number]
[2020-01-18 06:04] LABS: Basophils # 0.1 10^3/uL (0.0-0.1); Basophils % 0.4 %; Eosinophils % 0.1 %; Hematocrit 38.9 % (37.0-47.0); Hemoglobin 12.9 g/dL (11.5-15.3); Lymphocytes # 1.1 10^3/uL (0.8-4.8); Lymphocytes % 7.1 %; Mean Corpuscular HGB Conc 33.2 g/dL (30.0-36.0); Mean Corpuscular Hemoglobin 29.3 pg (28.0-34.0); Mean Corpuscular Volume 88.2 fL (81-99); Mean Platelet Volume 10.3 fL (7.4-10.4); Monocytes # 0.1 10^3/uL (0.2-0.9); Monocytes % 0.7 %; Neutrophils # 14.5 10^3/uL (1.8-7.7); Nucleated Red Blood Cells % 0 %; Platelet Count 220 10^3/cmm (130-400); Red Blood Count 4.41 10^6/uL (4.1-5.3); Red Cell Distribution Width 14.6 % (12.1-15.1); White Blood Count 15.9 10^3/uL (4.0-10.0)
[2020-01-18 06:32] LABS: Troponin 5 6HR 14.52 ng/mL (0-10)
[2020-01-18 06:34] LABS: Anion Gap 18.9 (5-19); Blood Urea Nitrogen 14 mg/dL (6-20); Calcium 9.4 mg/dL (8.5-10.5); Carbon Dioxide 22 mmol/L (22-29); Chloride 99 mmol/L (98-107); Glomerular Filtration Rate 47.9 mL/min (90-130); Glucose 276 mg/dL (65-115); Osmolality Calculated 288 mOsm/kg (285-295); Potassium 3.9 mmol/L (3.5-5.1); Sodium 136 mmol/L (136-145)
[2020-01-18 06:39] LABS: Troponin 5 6HR Delta -7.48 ng/L (0-12)
[2020-01-18 08:22] LABS: C Reactive Protein 103.4 mg/L (0.0-4.9)
[2020-01-18 08:27] LABS: Procalcitonin 0.11 ng/mL (0-0.5)
[2020-01-18] MEDS: clindamycin 600 MG/50 ML PREMIX 100 MG IV ×2 (09:05→17:22)
--- NOTE | 2020-01-18 09:12 | ECG_ITS ---
Measurements Intervals [place] Rate: 84 P: 69 [place]: 176 QRS: -9 QRSD: 97 T: 47 QT: 393 QTc: [address] & T-WAVE ABNORMALITY No previous ECG available for comparison Electronically Signed On 01-18-2020 20:34:58 MANAGER OF ENGINEERING by Tito Rasheed M.D. [id number]
[2020-01-18 09:24] LABS: Estmated Average Glucose 154
[2020-01-18] MEDS: ketorolac 30 mg/mL INJ 15 MG IVP (11:48)
--- NOTE | 2020-01-18 11:53 | P.CONIM_ITS ---
Providers/Reason For Consult Consulting Physican/Specialty*: Dr. Gage Gurrola MD Otolaryngology, Head & Neck Surgery Reason for Consult*: R/O Peritonsillar Abscess Requesting Physcian: Dr. Qureshi Attending Physician: Malka Mendoza MD Primary Care Provider: RENE Ryan History of Present Illness History of Present Illness Lilian Cisneros is a 50 year old female who was well until one week ago when she developed sore throat, especially on the right side. The patient was seen by her PCP yesterday and was reportedly given Septra for pharyngitis. The patient experienced a significant reaction to the antibiotic with sudden onset throat swelling and blood pressure elevation. The patient presented to the [facility] and was admitted to the ICU for monitoring and treatment. The patient had a Neck CT earlier today which showed a cystic appearing lesion of the left tonsil. I was consulted to evaluate the patient for possible a peritonsillar abscess. The patient was started on IV Clindamycin today and reports that she feels improved compared to when she was admitted. The patient denies any dysphagia or odynophagia, shortness of breath, voice changes, or other related symptoms. She denies any other noted palliative or provocative factors, and describes her current symptoms as mild. Review of Systems General: Reports: 10 or more systems reviewed and unremarkable except in HPI and below Meds/Allergies Home Medications and Allergies Home Medications Medication Instructions Recorded Confirmed Type No Known Home Medications 01/17/20 01/17/20 History Allergies Allergy/AdvReac Type Severity Reaction Status Date / Time sulfamethoxazole Allergy ALGY-Anaphy Verified 01/17/20 23:36 [From Bactrim] laxis trimethoprim [From Bactrim] Allergy ALGY-Anaphy Verified 01/17/20 23:36 laxis Current Medications Current Medications Generic Name Dose Route Start Last Admin Trade Name Freq PRN Reason Stop Dose Admin Nitroglycerin/Dextrose 50 mg in 250 mls @ 0 mls/hr 01/18/20 02:30 01/18/20 04:09 Nitroglycerin Drip IV 45 mcg/min .Q0M LESLEY 13.5 mls/hr Titration Protocol Per Protocol Clindamycin HCl/Dextrose 600 mg in 50 mls @ 100 mls/hr 01/18/20 09:30 01/18/20 09:35 Cleocin IV Infused Q8H LESLEY Infusion Protocol PFSH Acute PFSH: Surgical History Status post Family History Father Hypertension Mother Hypertension Social History Smoking and tobacco status: never smoked Alcohol intake: never Substance/Drug Use: never Lives independently: Yes Household members: spouse and children Marital status: Female Reproductive History: Date of last menstrual period: 11/19/18 : 3 Para: 3 Vitals/I&O/Wt Last Vital Signs Temp 97.8 F 01/18/20 03:45 Pulse 92 01/18/20 09:40 Resp 20 H 01/18/20 08:00 BP 143/88 01/18/20 08:00 Pulse Ox 94 01/18/20 09:40 01/17/20 01/18/20 01/18/20 22:59 06:59 14:59 Intake Total 340.592 / 340.592 50 / 50 Output Total 400 / 400 Balance 340.592 / 340.592 -350 / -350 Weight last 48 hrs Weight 90.718 kg Weight 90.718 kg Physical Exam HENMT: COMMON NORMALS: normocephalic, head/scalp atraumatic, hearing grossly normal bilaterally, external ears normal, EAC's normal, external nose normal, nasal mucous membranes and turbinates normal, moist oral mucous membranes and oropharynx normal HEAD & SCALP: normocephalic and atraumatic NOSE: external nose normal and nasal mucous membranes and turbinates normal EXTERNAL EAR: Yes external ears normal EXTERNAL AUDITORY CANAL: EAC's normal MOUTH: oral and palatal mucosa normal, lip normal, tongue normal, salivary glands and ducts normal, moist mucous membranes abnormal, muffled voice (The patient's voice is normal.), trismus (There is no trismus.) and other (The tonsils are 2+ and symmetric bilaterally.) THROAT: posterior oropharynx normal, tonsils normal and uvula midline OTHER: There is no trismus. There are 2+ tonsils bilaterally without palatal swelling or asymmetry. Data Micro: Micro: Microbiology 01/18/20 08:01 Blood Culture - Pr eliminary Blood SPECIMEN DEWAYNE WOODRUFF 01/18/20 08:55 Blood Culture - Pr eliminary Blood SPECIMEN [facility] Other Data: Attestation for Other Data: I personally reviewed and interpreted the following: (Neck CT scan) A&P Additional A&P Information Impression: Left Peritonsllar Cystic Structure: the differential dianosis includes an early left peritonsillar phlegmon or localized cellulitis. There are no physical exam findings c/w Peritonsillar abscess on today's exam. Plan: - I recommend IV Clindamycin while admitted - When the patient is stabilized and can be discharged, convert her to 10 days of oral Cleocin (300mg) po QID - She is to f/u with me next week as an outpatient - I will reevaluate her at the f/u visit - Please contact me for any changes or worsening of her symptoms Thank you for the opportunity to participate in Ms. Cisneros's care. Coding Level of Care Code Acute Proposal Rep for Doretha Mcclelland
[2020-01-18] MEDS: metoprolol tartrate 25 mg Tablet PO ×2 (13:01→17:23)
[2020-01-18] MEDS: lisinopril 20 mg Tablet PO ×2 (13:02→17:23)
[2020-01-18] MEDS: amlodipine 10 mg Tablet PO (13:02)
[2020-01-18] MEDS: fluticasone nasal spray 16gm Btl 1 SPRAY NASAL (13:02)
[2020-01-18 17:46] LABS: Glucose Point of Care 155 mg/dL (70-110)
--- NOTE | 2020-01-18 19:48 | PM.PN ---
Subjective Subjective: Interval history: Patient states that she is doing better, no throat swelling, no facial swelling, no tongue swelling, still has some dysphagia with solids and liquids for which she is been having for the last 3 days, some trismus, intermittent fevers and chills Vitals/I&O/Wt Last Vital Signs Temp 98.3 F 01/18/20 16:00 Pulse 81 01/18/20 16:00 Resp 23 H 01/18/20 16:00 BP 144/78 01/18/20 16:00 Pulse Ox 94 01/18/20 16:00 01/18/20 01/18/20 01/18/20 06:59 14:59 22:59 Intake Total 340.592 / 340.592 410 / 410 480 / 890 Output Total 550 / 550 Balance 340.592 / 340.592 -140 / -140 480 / 340 Weight last 48 hrs Weight 90.718 kg Weight 90.718 kg Physical Exam Const: COMMON NORMALS: no apparent distress and oriented x3 HENMT: COMMON NORMALS: normocephalic HEAD & SCALP: normocephalic Neck/C-Spine: COMMON NORMALS: full ROM, no JVD and thyroid normal GENERAL: Yes lymphadenopathy Lymphadenopathy location: anterior cervical THYROID: thyroid normal OTHER: Oropharyngeal exam, slight uvular deviation to the right, tonsils difficult to observe given airway crowding mallampi 2 Resp: COMMON NORMALS: normal respiratory effort, no retractions, no use of accessory muscles and clear to auscultation bilaterally AUSCULTATION: clear to auscultation bilaterally Cardio: COMMON NORMALS: no JVD, regular rate, regular rhythm, S1 normal heart sound and S2 normal heart sound RATE: regular rate RHYTHM: regular rhythm HEART SOUNDS: S1 normal and S2 normal GI: COMMON NORMALS: normal to inspection, nondistended, normoactive bowel sounds, soft to palpation, non-tender, no hepatosplenomegaly, no masses and no bruits PALPATION: Yes soft and Yes no hepatosplenomegaly Extremity: COMMON NORMALS: normal capillary refill, no clubbing, cyanosis or edema, no calf tenderness and no pedal edema Neuro: COMMON NORMALS: oriented x3 Psych: COMMON NORMALS: mental status grossly normal Data : 01/18/20 05:49 01/18/20 05:49 Micro: Microbiology 01/18/20 08:01 Blood Culture - Preliminary Blood SPECIMEN COLLECTED 01/18/20 08:55 Blood Culture - Preliminary Blood SPECIMEN COLLECTED A&P Assessment and plan (1) Allergic reaction caused by a drug: Presumptive diagnosis based on symptoms of fullness in the throat, palpitations, shortness of breath after taking her second dose of Bactrim Will require continuous monitoring in the ICU for rebound Status: Acute Qualifiers: Encounter type: initial encounter Qualified Code(s): T78.40XA - Allergy, unspecified, initial encounter Code(s): T78.40XA - Allergy, unspecified, initial encounter (2) Hypertensive urgency: -Likely has hypertension as outpatient, not on medications -Transition off nitro drip to oral medications Status: Acute Code(s): I16.0 - Hypertensive urgency (3) Hyperglycemia: Without a known diagnosis of diabetes Status: Acute Code(s): R73.9 - Hyperglycemia, unspecified (4) Tonsillar cyst: Noted on CT imaging of the neck. Mentioned in the radiologist impression was also the possibility of abscess. Exam does not go along with this presently. She does have a elevation in white count however. Status: Acute Code(s): J35.8 - Other chronic diseases of tonsils and adenoids (5) Type 2 diabetes mellitus: -Hemoglobin A1c 7.0 -Has type 2 diabetes mellitus -We will require diabetic education on discharge, diabetic supplies, metformin, with close follow-up with primary care physician as outpatient Status: Acute Code(s): E11.9 - Type 2 diabetes mellitus without complications Additional A&P Information -I am concerned for the possibility of peritonsillar abscess, given throat swelling, dysphagia, neck pain, trismus, uvula deviation, adenopathy seen on CT scan will have Dr. Baer come by and look at the patient start her on Cleocin for antibiotic coverage in the meantime Attestations Medical Necessity Statement*: Patient requires continued hospitalization due to allergic reaction to sulfa, new onset type 2 diabetes mellitus, possible peritonsillar abscess Coding Level of Care Code Acute Air Cargo Specialist for Chg Fwd Diagnoses Allergic reaction caused by a drug T78.40XA Encounter type: initial encounter Hypertensive urgency I16.0 Hyperglycemia R73.9 Tonsillar cyst J35.8 Type 2 diabetes mellitus E11.9
--- NOTE | 2020-01-18 22:05 | PC.CHAP ---
Pastoral Care Encounter/Spiritual Assessment Type of Contact [] Declined marina manager visit [] Patient/Family/Request visit [] Outpatient visit [] Follow-up visit [] Physician referral [] Code/Alert [] Routine visit [] Staff referral [] Actively dying [] Patient sleeping [] Family support [] [] Out of room [] Palliative care [] [] Receiving care in room [] Pre-surgical visit [] Trauma [] Long length of stay [] ICU visit [] Other: Relational/Emotional Strength [] Patient feels connected with others/family/visitors/staff [] Distress [] Loneliness/isolation [] Abandonment Spirituality of Patient [] Person of [place] [] Attends Pentecostalism of their [place] [] Believes in Prayer [] Reads Bible or Buddhist materials [] There are Spiritual issues to be addressed Vp Treasurer Interventions [] Prayer [] Active listening [] Non-anxious presence [] Spiritual/emotional support [] Crisis/trauma care [] Spiritual counseling [] Bereavement support [] Provided bereavement packet [] Provided Bible/devotional materials [] Provided toy/stuffed animal, coloring book to patient or family member [] Provided Communion [] Anointing/[place] [] Salvation [] Completed spiritual assessment [] Other: Impact on Illness or Injury [] Angry [] Fearful [] Anxious [] Often cries [] Exhaustion [] Unable to work [] Unable to attend evangelical [] Unable to walk/stand [] Unable to read [] Unable to drive [] Unable to eat/drink [] Unable to sleep [] Unable to be with family [] Patient intubated [] Other: Summary DOOR TO ROOM LOCKED. NEED FOLLOWUP NEXT DAY Time spent with patient
[2020-01-19] VITALS (9 sets, daily range): BP systolic 124–197; BP diastolic 70–136; PULSE 65–101; RESP 13–29; TEMP 36.5; O2SAT 93–96; BMI 38.1
[2020-01-19] MEDS: clindamycin 600 MG/50 ML PREMIX 100 MG IV ×2 (01:47→09:34)
[2020-01-19 04:54] LABS: Basophils % 0.2 %; Eosinophils % 0.1 %; Hematocrit 36.5 % (37.0-47.0); Hemoglobin 11.7 g/dL (11.5-15.3); Lymphocytes # 2.5 10^3/uL (0.8-4.8); Lymphocytes % 11.9 %; Mean Corpuscular HGB Conc 32.1 g/dL (30.0-36.0); Mean Corpuscular Hemoglobin 28.2 pg (28.0-34.0); Mean Platelet Volume 11.1 fL (7.4-10.4); Monocytes % 4.6 %; Neutrophils # 17.1 10^3/uL (1.8-7.7); Neutrophils % 82.6 %; Nucleated Red Blood Cells % 0 %; Platelet Count 240 10^3/cmm (130-400); Red Blood Count 4.15 10^6/uL (4.1-5.3); Red Cell Distribution Width 14.9 % (12.1-15.1); White Blood Count 20.7 10^3/uL (4.0-10.0)
[2020-01-19 05:07] LABS: Anion Gap 13.9 (5-19); Blood Urea Nitrogen 19 mg/dL (6-20); Calcium 9.2 mg/dL (8.5-10.5); Carbon Dioxide 23 mmol/L (22-29); Chloride 102 mmol/L (98-107); Glomerular Filtration Rate 66.8 mL/min (90-130); Glucose 194 mg/dL (65-115); Osmolality Calculated 282 mOsm/kg (285-295); Potassium 3.9 mmol/L (3.5-5.1); Sodium 135 mmol/L (136-145)
[2020-01-19 07:31] LABS: Glucose Point of Care 252 mg/dL (70-110)
[2020-01-19] MEDS: lisinopril 20 mg Tablet PO (07:58)
[2020-01-19] MEDS: amlodipine 10 mg Tablet PO (07:59)
[2020-01-19] MEDS: chlorthalidone 25 mg Tablet PO (08:00)
[2020-01-19] MEDS: metoprolol tartrate 50 mg Tablet PO (08:33)
--- NOTE | 2020-01-19 08:43 | PC.NURSE ---
note red specs in urine. ? pt. if she was on her period. states started going thru change at 40 yrs old, and conts to have episodes of minimal red drainage occ.
--- NOTE | 2020-01-19 09:43 | PC.NURSE ---
transferred to [address] [place] [address]
[2020-01-19 10:55] LABS: Glucose Point of Care 194 mg/dL (70-110)
[2020-01-19 11:19] LABS: Glucose Point of Care 167 mg/dL (70-110)
--- NOTE | 2020-01-19 11:29 | P.DS_ITS ---
Discharge Providers Date of Admission: 01/18/20 02:28 Date of Discharge: January 19, 2020 Attending Provider at Admission: Malka Mendoza MD Attending Provider at Discharge: Malka Mendoza MD Primary Care Provider: RENE Ryan Diagnoses at Discharge Discharge Diagnosis (1) Allergic reaction caused by a drug: Status: Acute Qualifiers: Encounter type: initial encounter Qualified Code(s): T78.40XA - Allergy, unspecified, initial encounter (2) Hypertensive urgency: Status: Acute (3) Hyperglycemia: Status: Acute (4) Tonsillar cyst: Status: Acute (5) Type 2 diabetes mellitus: Status: Acute Reason for Visit Reason for Visit: Reason For Visit: throat swelling/possible alergic reaction Hospital Course Discharge Summary: This is a 42-year-old female with no significant past medical history who presented to the emergency room due to throat swelling, dysphasia after taking Bactrim for sinusitis. Patient was admitted to the intensive care unit, she had no rebound anaphylaxis, she clinically did well, she is advised to avoid Bactrim antibiotics, or Bactrim derivatives, and to establish with a primary care provider here in [place]. On admission patient was found to have new onset type 2 diabetes mellitus, hemoglobin A1c was 7.0, patient received diabetic education, discharged on metformin thousand once daily, with instructions to check blood sugars 3 times daily, and follow-up with blood sugar log with a new primary care provider. Patient also had hypertensive urgency on admission, with no history of hypertension in the past, likely patient undiagnosed high blood pressure as outpatient, she was admitted to the ICU on a nitro drip, weaned off the nitro drip, discharge amlodipine 10 mg once daily, chlorthalidone 25 mg once daily, li sinopril 20 mg twice daily, metoprolol 50 twice daily, spironolactone 25 mg p.o. twice daily. Patient will require a secondary work-up for hypertension as outpatient. In addition patient was found to have a peritonsillar cystic structure on the left, differential included left peritonsillar phlegmon versus localized cellulitis, patient did have complaints of sore throat, dysphasia, trismus, she was treated with clindamycin, she clinically improved, remained afebrile, although her white blood cell count did increase to 20,000, she did clinically improve. Patient was discharged with clindamycin 300 4 times daily for remaining 9 days, and to follow-up with Dr. Gurrola as outpatient. In addition patient CT scan showed some endometrial thickening, she will require an outpatient pelvic exam, with transvaginal ultrasound, and outpatient work-up. Physical Exam Const: COMMON NORMALS: no apparent distress and oriented x3 HENMT: COMMON NORMALS: normocephalic HEAD & SCALP: normocephalic Neck/C-Spine: COMMON NORMALS: full ROM, no JVD and thyroid normal GENERAL: Yes lymphadenopathy Lymphadenopathy location: anterior cervical THYROID: thyroid normal Resp: COMMON NORMALS: normal respiratory effort, no retractions, no use of accessory muscles and clear to auscultation bilaterally AUSCULTATION: clear to auscultation bilaterally Cardio: COMMON NORMALS: no JVD, regular rate, regular rhythm, S1 normal heart sound and S2 normal heart sound RATE: regular rate RHYTHM: regular rhythm HEART SOUNDS: S1 normal and S2 normal GI: COMMON NORMALS: normal to inspection, nondistended, normoactive bowel sounds, soft to palpation, non-tender, no hepatosplenomegaly, no masses and no bruits PALPATION: Yes soft and Yes no hepatosplenomegaly Extremity: COMMON NORMALS: normal capillary refill, no clubbing, cyanosis or edema, no calf tenderness and no pedal edema Neuro: COMMON NORMALS: oriented x3 Psych: COMMON NORMALS: mental status grossly normal Discharge Data Data Completed and Pending: Completed Studies During Hospitalization Category Date Time Status CT angio chest ab domen pelvis Stat Cat Scan 01/18/20 00:[address] head wo con* 7 0450 Urgent Cat Scan 01/17/20 23:[address] neck w con* 70 491 Urgent Cat Scan 01/18/20 00:04 Completed XR chest 1V zelda ble [id number] Stat Exams 01/17/20 23:29 Completed Pending at discharge Category Date Time Status Blood Culture Sta t Lab 01/18/20 08:01 Results Streptococcus Cul ture Group A Stat Lab 01/18/20 00:23 Results Urine Culture Sta t Lab 01/18/20 16:30 Received Labs from last 24 hours 01/19/20 01/19/20 01/19/20 10:48 08:04 03:18 WBC RBC Hgb Hct MCV MCH MCHC RDW Plt Count MPV Neut % (Auto) Lymph % (Auto) [place] % (Auto) Eos % (Auto) Baso % (Auto) Neut # (Auto) Lymph # (Auto) [place] # (Auto) Eos # (Auto) Baso # (Auto) Nucleated RBC % (a uto) Nucleated RBCs # Sodium 135 L Potassium 3.9 Chloride 102 Carbon Dioxide 23 Anion Gap 13.9 BUN 19 Creatinine 0.9 GFR Calculation 66.8 L Glucose 194 H POC Glucose 194 167 Calculated Osmolal ity 282 L Calcium 9.2 01/19/20 01/18/20 01/17/20 03:18 12:22 23:51 WBC 20.7 H RBC 4.15 Hgb 11.7 Hct 36.5 L MCV 88.0 MCH 28.2 MCHC 32.1 RDW 14.9 Plt Count 240 MPV 11.1 H Neut % (Auto) 82.6 Lymph % (Auto) 11.9 [place] % (Auto) 4.6 Eos % (Auto) 0.1 Baso % (Auto) 0.2 Neut # (Auto) 17.1 H Lymph # (Auto) 2.5 [place] # (Auto) 1.0 H Eos # (Auto) 0.0 Baso # (Auto) 0.0 Nucleated RBC % (a uto) 0 Nucleated RBCs # 0.0 Sodium Potassium Chloride Carbon Dioxide Anion Gap BUN Creatinine GFR Calculation Glucose POC Glucose 252 155 Calculated Osmolal ity Calcium Vitals: Last Vital Signs Temp 97.7 F 01/19/20 11:13 Pulse 65 01/19/20 11:13 Resp 22 H 01/19/20 11:13 BP 153/99 01/19/20 11:13 Pulse Ox 96 01/19/20 11:13 Discharge Plan Discharge Patient Disposition: Home, Self-Care Condition: Stable Prescriptions: New lisinopril 20 mg Tablet 20 mg PO BID 30 Days Qty: 60 RF: 0 chlorthalidone 25 mg Tablet 25 mg PO DAILY 30 Days Qty: 30 RF: 0 spironolactone 25 mg Tablet 25 mg PO BID 30 Days Qty: 60 RF: 0 amlodipine 10 mg Tablet 10 mg PO DAILY 30 Days Qty: 30 RF: 0 metoprolol tartrate 50 mg Tablet 50 mg PO BID 30 Days Qty: 60 RF: 0 metformin 1,000 mg tablet extended release 24hr 1,000 mg PO DAILY 30 Days Qty: 30 RF: 0 clindamycin HCl 300 mg capsule 300 mg PO QID 9 Days Qty: 36 RF: 0 (DME) glucometer kit, lancets, strips Qty: 1 RF: 0 No Action No Known Home Medications RF: 0 Discharge Orders: Discharge Order (Routine); Ordered 01/19/20 Ordered By: Fernando Qureshi Other Ambulatory Orders: Comprehensive Metabolic Panel (Routine) Timeframe: 1 Week Facility: [facility] - Location: Lab - Main Lab Ordered By: Fernando Qureshi Referrals: Gage Gurrola MD [Physician] - 7-10 days Fernando Qureshi MD [Hospitalist] - 2 weeks Discharge Diet: Diabetic Discharge Activity: Resume usual activity Patient Instructions: Heart Healthy Diet (GEN), How to Take a Blood Pressure (GEN), How to Check Your Blood Sugar (DC), Diabetic Foot Care (DC), Diabetes Mellitus Type 2 in Adults (GEN), Chronic Hypertension (GEN), Low Sodium Diet (GEN), Hypertensive Crisis (DC) Activity Restrictions/Additional Instructions: - Please check blood sugars 3 times daily -Bring blood sugar logs to primary care physician's office, if blood sugar greater than 500 call primary care, if blood sugar less than 60 drink or juice, call primary care -Check blood pressure once daily -If systolic blood pressure greater than 180 call primary care, if diastolic blood pressure greater than 110 call primary care -If you have chest pain, shortness breath, lightheadedness, dizziness, strokelike symptoms come back to the emergency room -Please take antibiotics as prescribed -Please follow-up with Dr. Gurrola in 1 week -You do not have a primary care provider, if you would like to follow-up with me in 2 weeks more than happy to see you in clinic -Your CT scan of your abdomen did show some endometrial thickening, will need further evaluation as outpatient Discharge Attestations Time Spent in Discharge Care*: less than 30 min Quality Metrics Clinical Quality Measures During this hospital stay, did patient experience: None Coding Level of Care Code Acute Nursing Admin for Chg Fwd Diagnoses Allergic reaction caused by a drug T78.40XA Encounter type: initial encounter Hypertensive urgency I16.0 Hyperglycemia R73.9 Tonsillar cyst J35.8 Type 2 diabetes mellitus E11.9
[2020-01-19] MEDS: spironolactone 25 mg Tablet PO (11:44)
--- NOTE | 2020-01-19 15:19 | PC.NURSE ---
Discharge to home Instructed pt to check her BP twice a day at home. Keep a log of it to bring to her PCP. Discuss to her the follow-up appointments and to take her meds as prescribed. Pt verbalizes understanding. Discharge packet provided.
[2020-01-19 17:57] LABS: Glucose Point of Care 238 mg/dL (70-110)
[2020-01-19 17:57] LABS: Glucose Point of Care 245 mg/dL (70-110)
== END 2020-01-19 15:20 | disposition home or self-care (01) ==
LOC: ER 23:34 → ICU 01-18 02:39 → MEDSURG 01-19 09:24
PROVIDERS: Family Medicine; Admitting Provider Hospitalist; Emergency Provider Emergency Medicine; Family Provider Obstetrics & Gynecology; PCP Nurse Practitioner Family; Visit Provider Hospitalist
DX: T78.40XA Allergy, unspecified, initial encounter (principal); I16.0 Hypertensive urgency; J35.8 Other chronic diseases of tonsils and adenoids; Z82.49 Family history of ischemic heart disease and other diseases of the circulatory system; E11.65 Type 2 diabetes mellitus with hyperglycemia
CPT/HCPCS: 12345; 36415; 36416; 70450; 70491; 71045; 71275; 73221; 74174; 80048; 80053; 81001; 82962; 83036; 83735; 84145; 84484; 84703; 85025; 86140; 87040; 87081; 87086; 87880; 93005; 96361; 96365; 96366; 96367; 96368; 96372; 96374; 96375; 96376; 99284; 99291; A9270; G0378; J1200; J1815; J1885; J2060; J2405; J2543; J2930; J3480; J3490; J7030; J7050; Q9967